=== PATIENT | male | born 1930 | race Caucasian/White ===

== ENCOUNTER 2016-08-13 15:30 | Emergency (ER) | payer OTHER, MEDICARE ==
[~2016-08-13 15:30] MED LIST: ALBUTEROL0.09 MG/A1 INH; ALTACE5 MG PO; ANTIVERT 25MG #1 PAC PO; COUMADIN 6 MG TA6 MG PO; CRESTOR10 MG PO; EPLERENONE25 MG PO; METOPROLOL TART50 MG PO; NORCO 325 MG-51 TAB PO; PREDNISONE 20MG20 MG PO; ROBITUSSIN W/CO10 ML PO; TESSALON PERLE100 MG PO; VIBRAMYCIN 100100 MG PO; ZOFRAN4 M1 SL
[2016-08-13 15:54] VITALS: BP 146/94
[2016-08-13 15:58] LABS: ABSOLUTE BASOPHIL COUNT 0.1 /CUMM (0.0-0.2); ABSOLUTE EOSINOPHIL COUNT 0 /CUMM (0.0-0.7); ABSOLUTE GRANULOCYTE CT 3.5 /CUMM (1.4-6.5); ABSOLUTE LYMPH COUNT 1.4 /CUMM (1.2-3.4); ABSOLUTE MONOCYTE COUNT 0.7 /CUMM (0.10-0.60); BASOPHIL % 1.5 % (0.0-2.0); EOSINOPHIL % 0.8 % (0-5); GRANULOCYTE % 61.5 % (42.2-75.2); MEAN CORPUSCULAR HGB 31.3 PG (27.0-31.0); MEAN CORPUSCULAR HGB CONC 33.1 G/DL (33.0-37.0); MEAN CORPUSCULAR VOLUME 94.4 FL (80.0-94.0); PLATELET COUNT 166 /CUMM (130-400); RBC DISTRIBUTION WIDTH 14.5 % (11.5-14.5); RED BLOOD CELL CT 4.45 /CUMM (4.70-6.10); WHITE BLOOD CELL COUNT 5.7 /CUMM (4.8-10.8)
[2016-08-13 16:04] LABS: PT 31.6 SEC (9.4-12.5)
--- NOTE | 2016-08-13 16:19 | RADIOLOGY REPORT ---
EXAMINATION: XR CHEST CLINICAL INFORMATION: Chest pain. Shortness of breath. COMPARISON: Chest x-ray 05/15/2015 TECHNIQUE: 2 views of the chest were obtained. FINDINGS: Pacemaker lead at base of right ventricle. Heart size enlarged. Calcifications thoracic aorta at the arch. Lungs are clear. No infiltrate or pleural effusion. There is no pulmonary vascular congestion. Compared to the prior chest x-ray there has been no change. IMPRESSION: No acute change of chest.
--- NOTE | 2016-08-13 17:20 | ED GENERAL ADULT ---
History of Present Illness General Chief Complaint: Chest Pain Stated Complaint: CP; SOB Source: patient, family, old records Exam Limitations: no limitations Allergies Coded Allergies: quinidine (UNKNOWN 09/10/15) Reconcile Medications Albuterol Sulfate (Ventolin Hfa) 90 MCG HFA.AER.AD 2 PUF INH Q4-6 PRN PRN WHEEZING/SHORTNESS OF BREATH Azithromycin 250 MG TABLET 1 DP PO AD lung 2 the first day followed by 1 for days 2-5 Eplerenone 25 MG TAB 1 TAB PO DAILY HEART (Reported) Meclizine (Antivert) 25 MG PAC 1 TAB PO TID PRN VERTIGO Methylprednisolone. (Medrol) 4 MG TAB.DS.PK 1 DP PO AD breathing Metoprolol Tartrate 50 MG TAB 1 TAB PO DAILY HEART (Reported) Metoprolol Tartrate 50 MG TAB 1 TAB PO QPM HEART (Reported) Ramipril (Altace) 5 MG CAP 1 CAP PO DAILY HEART (Reported) Rosuvastatin Calcium (Crestor) 10 MG TAB 1 TAB PO DAILY CHOLESTEROL (Reported ) Warfarin Sodium (Coumadin) 6 MG TAB 1 TAB PO 1700 BLOOD THINNER (Reported) Warfarin Sodium (Coumadin) 6 MG TAB 6.5 MG PO 1700 BLOOD THINNER (Reported) Triage Note: PER PT CO COUGH AND CONGESTION X 3 DAYS WAS GOING TO SEE PMD TODAY BUT DECIDED TO COME TO ED. CO NONSPECIFIC CP, PT REPORTS THAT HE HAS A DEFIB PT VERY VAGUE, LABS DRAWN BLUE, GOLD, LAV ANFD [place]. Triage Nurses Notes Reviewed? yes HPI: Patient is an 78-year-old male presents complaining of cough, chest congestion, wheezing, sputum production. Symptoms for approximately 72 hours. Patient reports cough with yellow sputum production. Symptoms are currently moderate. Patient has been using Vicks and Tylenol with minimal improvement. Patient has an albuterol inhaler that was so he did not use it. At approximately 2 AM this morning patient had bilateral shoulder aching pain and left upper extremity pain. No pain since at least 3 AM this morning. Patient denies fevers, chills. (BELÉN AYALA) Vital Signs & Intake/Output Vital Signs & Intake/Output Vital Signs Date Time Temp Pulse Resp B/P Pulse O2 O2 Flow FiO2 Ox Delivery Rate 08/13 1845 Room Air 08/13 1750 96 08/13 1554 71 22 146/94 95 Room Air Past History Travel History Traveled to [place] past 21 day No Medical History Any Pertinent Medical History? 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 No (BELÉN AYALA) Review of Systems Review of Systems Constitutional: Reports: weakness. Denies: chills, fever. EENTM: Reports: no symptoms. Respiratory: Reports: see HPI. Cardiovascular: Reports: see HPI. GI: Denies: abdominal pain, nausea, vomiting. Genitourinary: Reports: no symptoms. Musculoskeletal: Reports: see HPI. Skin: Reports: no symptoms. Neurological/Psychological: Reports: no symptoms. Hematologic/Endocrine: Reports: no symptoms. Immunologic/Allergic: Reports: no symptoms. (BELÉN AYALA) Physical Exam Physical Exam General Appearance: well developed/nourished, alert, awake Head: atraumatic, normal appearance Eyes: Bilateral: normal appearance, PERRL, EOMI. Ears, Nose, Throat: normal pharynx, normal ENT inspection, hearing grossly normal Neck: normal inspection, supple, full range of motion Respiratory: chest non-tender, no respiratory distress, diffuse moderate inspiratory and expiratory wheezing. Scattered rhonchi Cardiovascular: irregularly irregular, rate controlled, murmur Gastrointestinal: soft, non-tender Extremities: 1+ bilateral lower extremity edema Neurologic/Psych: no motor/sensory deficits, awake, alert, oriented x 3, normal gait, normal mood/affect Skin: intact, normal color, warm/dry Lymphatic: no anterior cervical adrienne Core Measures ACS in differential dx? Yes ASA ordered for poss ACS? No-ACS ruled out CVA/TIA Diagnosis: No Severe Sepsis Present: No Septic Shock Present: No (BELÉN AYALA) Progress Differential Diagnoses I considered the following diagnoses in my evaluation of the patient: Initial ED EKG: atrial fibrillation rate controlled, no acute changes from previous EKG Prior EKG: unchanged (BELÉN AYALA) Plan of Care: Orders Procedure Date/time Status TROPONIN LEVEL 08/13 1548 Complete PROTHROMBIN TIME 08/13 1548 Complete COMPREHENSIVE METABOLIC PANEL 08/13 1548 Complete CBC WITHOUT DIFFERENTIAL 08/13 1548 Complete EKG 08/13 1532 Active Laboratory Tests 08/13/16 1545: Anion Gap 11, Estimated GFR > 60, BUN/Creatinine Ratio 20.0, Glucose 103 H, Calcium 9.1, Total Bilirubin 1.1, AST 35, ALT 39, Alkaline Phosphatase 61, Troponin I < 0.01, Total Protein 6.5, Albumin 3.9, Globulin 2.6, Albumin/ Globulin Ratio 1.5, PT 31.6 H, INR 3.04 H, CBC w Diff NO MAN DIFF REQ, RBC 4.45 L, MCV 94.4 H, MCH 31.3 H, RDW 14.5, MPV 8.0, Gran % 61.5, Lymphocytes % 24.0, Monocytes % 12.2 H, Eosinophils % 0.8, Basophils % 1.5, Absolute Granulocytes 3.5, Absolute Lymphocytes 1.4, Absolute Monocytes 0.7 H, Absolute Eosinophils 0, Absolute Basophils 0.1, PUBS MCHC 33.1 08/13/2016 5:37:27 PM: Discussed with and seen by Dr. Hassan. Results of labs and chest x-ray discussed with patient. Patient feeling improved after IV leisure treatment. Continues with diffusely coarse lung sounds but has improved air movement. Discussed labs and imaging with patient and his family. Appears stable for discharge (BELÉN AYALA) Departure Departure Time of Disposition: 1808 Disposition: HOME OR SELF CARE Condition: Stable Clinical Impression Primary Impression: Bronchitis Referrals: BILL STEWART,MOLINA Ramirez (PCP/Family) SHANICE STEWART,SHELLY Masno Additional Instructions: Follow up with your primary doctor within 1 week for recheck and further evaluation. Your coumadin level should be rechecked early next week as the medications can affect your INR. Call in the morning for appointment. Return to the ER if breathing worsening, unable to stay hydrated or worsening of symptoms. Departure Forms: Customer Survey General Discharge Information Prescriptions: Current Visit Scripts Methylprednisolone. (Medrol) 1 DP PO AD #1 DP Azithromycin 1 DP PO AD #6 TAB 2 the first day followed by 1 for days 2-5 Albuterol Sulfate (Ventolin Hfa) 2 PUF INH Q4-6 PRN PRN WHEEZING/SHORTNESS OF BREATH #1 INHAL (BELÉN AYALA) PA/TURBINE ENGINE ASSEMBLER Co-Sign Statement Statement: ED Attending supervision documentation- [x] I saw and evaluated the patient. I have also reviewed all the pertinent lab results and diagnostic results. I agree with the findings and the plan of care as documented in the PA's/TURBINE ENGINE ASSEMBLER's documentation. [] I have reviewed the ED Record and agree with the PA's/TURBINE ENGINE ASSEMBLER's documentation. [] Additions or exceptions (if any) to the PAs/TURBINE ENGINE ASSEMBLER's note and plan are summarized below: [] (AUGUST STEWART,ELIJAH Mistry) Critical Care Note Critical Care Note Critical Care Time: non-applicable (BELÉN AYALA)
[2016-08-13] MEDS ORDERED: VENTOLIN HFA18 GM INH (18:12)
[2016-08-13] MEDS ORDERED: AZITHROMYCIN250 M1 PO (18:12)
[2016-08-13] MEDS ORDERED: MEDROL4 M2 PO (18:12)
== END 2016-08-13 18:13 ==
LOC: ERH 15:30
PROVIDERS: Emergency Medicine
DX: J40 Bronchitis, not specified as acute or chronic (principal); R07.89 Other chest pain; Z87.891 Personal history of nicotine dependence; Z79.01 Long term (current) use of anticoagulants
CPT/HCPCS: 1263; 93005; 93010

== ENCOUNTER 2017-09-17 10:31 | Emergency (ER) | payer OTHER ==
[~2017-09-17] VITALS: Ht 172.7 cm; Wt 83.9 kg
[~2017-09-17 10:31] MED LIST changes: +ALTACE5 M2 PO; -ALTACE5 MG PO; +AZITHROMYCIN250 M1 PO; +BENTYL10 M1 PO; -COUMADIN 6 MG TA6 MG PO; +COUMADIN6 M1 PO; +CRESTOR10 M1 PO; -CRESTOR10 MG PO; +EPLERENONE25 M1 PO; -EPLERENONE25 MG PO; +LOPRESSOR50 M1 PO; +MECLIZINE HCL25 MG PO; +MEDROL4 M2 PO; +METOPROLOL TART50 M1 PO; -METOPROLOL TART50 MG PO; +PROBIOTIC1 EACH PO; +VENTOLIN HFA18 GM INH; +VITAMIN D250000 UNIT PO
--- NOTE | 2017-09-17 10:34 | ED DYSPNEA/ASTHMA COMPLAINT ---
History of Present Illness General Chief Complaint: Upper Respiratory Sx/Fever Stated Complaint: COLD LIKE S/S Source: patient, family, old records Exam Limitations: no limitations Vital Signs & Intake/Output Vital Signs & Intake/Output Vital Signs Date Time Temp Pulse Resp B/P B/P Pulse O2 O2 Flow FiO2 Mean Ox Delivery Rate 09/17 1058 98 09/17 1038 96 Room Air 09/17 1035 97.9 68 18 155/85 96 Room Air Allergies Coded Allergies: quinidine (UNKNOWN 09/10/15) Reconcile Medications Amoxicillin 250 MG CAPSULE 1 CAP PO TID PNEUMONIA Dicyclomine Hydrochloride (Bentyl) 10 MG CAPSULE 1 CAP PO TID PRN ABDOMINAL CRAMPING Eplerenone 25 MG TABLET 1 TAB PO DAILY HEART (Reported) Ergocalciferol (Vitamin D2) (Vitamin D2) 50,000 UNIT CAPSULE 1 CAP PO QW VITAMIN SUPPORT (Reported) Lactobacillus Acidophilus (Probiotic) 10 BILLION CELL CAPSULE 1 CAP PO QW GI (Reported) Meclizine (Antivert) 25 MG PAC 1 TAB PO TID PRN VERTIGO Meclizine HCl 25 MG TABLET 1 TAB PO TIDPRN PRN VERTIGO (Reported) Metoprolol Tartrate 50 MG TABLET 0.5 TAB PO QPM HTN/AFIB (Reported) Metoprolol Tartrate (Lopressor) 50 MG TABLET 1 TAB PO DAILY HEART (Reported) Ramipril (Altace) 5 MG CAPSULE 1 CAP PO QPM HEART (Reported) Rosuvastatin Calcium (Crestor) 10 MG TABLET 1 TAB PO DAILY CHOLESTEROL ( Reported) Warfarin Sodium (Coumadin) 6 MG TABLET 1 TAB PO MoTuWeThFrSa BLOOD THINNER ( Reported) Warfarin Sodium (Coumadin) 6 MG TABLET 0.5 TAB PO Szymanski BLOOD THINNER (Reported) Triage Nurses Notes Reviewed? yes HPI: Patient presents with a runny nose, productive cough and shortness of breath worsening over the past 2 days. Patient denies any chest pain or chest tightness. There is no dyspnea on exertion or orthopnea. There is no nausea or vomiting. There are no fevers or chills. Patient has been using his inhaler without relief. Past History Medical History Any Pertinent Medical History? 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 No Review of Systems Review of Systems Constitutional: Reports: no symptoms. EENTM: Reports: no symptoms. Respiratory: Reports: see HPI, cough, short of breath. Cardiovascular: Reports: no symptoms. GI: Reports: no symptoms. Genitourinary: Reports: no symptoms. Musculoskeletal: Reports: no symptoms. Skin: Reports: no symptoms. Neurological/Psychological: Reports: no symptoms. Hematologic/Endocrine: Reports: no symptoms. Immunologic/Allergic: Reports: no symptoms. All Other Systems: Reviewed and Negative Physical Exam Physical Exam General Appearance: well developed/nourished, alert, awake, anxious, mild distress Head: atraumatic, normal appearance Eyes: Bilateral: PERRL, EOMI. Ears, Nose, Throat: normal pharynx, hearing grossly normal Neck: normal inspection, supple, full range of motion Respiratory: normal breath sounds, chest non-tender, rhonchi Cardiovascular: regular rate/rhythm, normal peripheral pulses Gastrointestinal: normal bowel sounds, soft, non-tender, no organomegaly Extremities: normal inspection, normal capillary refill, normal range of motion, no edema Neurologic/Psych: no motor/sensory deficits, awake, alert, oriented x 3, normal gait, normal mood/affect Skin: intact, normal color, warm/dry Lymphatic: no anterior cervical adrienne Core Measures ACS in differential dx? No CVA/TIA Diagnosis No Sepsis Present: No Sepsis Focused Exam Completed? No Progress Differential Diagnosis: asthma, bronchitis, CHF, COPD, pneumonia, pneumothorax Plan of Care: Orders Procedure Date/time Status BLOOD CULTURE 09/17 1107 Active PARTIAL THROMBOPLASTIN TIME 09/17 1107 Complete PROTHROMBIN TIME 09/17 1107 Complete Add-on Test (ER Only) 09/17 1058 Active TROPONIN LEVEL 09/17 1042 Complete COMPREHENSIVE METABOLIC PANEL 09/17 1042 Complete CBC WITHOUT DIFFERENTIAL 09/17 1042 Complete EKG 09/17 1042 Active Laboratory Tests 09/17/17 1118: PT 25.7 H, INR 2.34 H, APTT 35 09/17/17 1055: Anion Gap 9, Estimated GFR > 60, BUN/Creatinine Ratio 27.1 H, Glucose 104 H, Calcium 9.2, Total Bilirubin 1.3, AST 28, ALT 33, Alkaline Phosphatase 51, Troponin I 0.01, Total Protein 6.3, Albumin 3.8, Globulin 2.5, Albumin/Globulin Ratio 1.5, CBC w Diff NO MAN DIFF REQ, RBC 4.28 L, MCV 95.3 H, MCH 32.5 H, MCHC 34.1, RDW 15.2 H, MPV 7.5, Gran % 73.3, Lymphocytes % 17.4 L, Monocytes % 7.8, Eosinophils % 0.9, Basophils % 0.6, Absolute Granulocytes 5.4, Absolute Lymphocytes 1.3, Absolute Monocytes 0.6, Absolute Eosinophils 0.1, Absolute Basophils 0 Microbiology 09/17 1130 BLOOD: Blood Culture - RECD 09/17 1118 BLOOD: Blood Culture - RECD Diagnostic Imaging: Viewed by Me: Radiology Read. Discussed w/RAD: Radiology Read. CXR Impression: PATIENT: BERNARDO BURGESS PRESENT AGE: 87 PATIENT ACCOUNT NO: [id number] : [birth year] LOCATION: [facility] ORDERING PHYSICIAN: Keith Arias MD SERVICE DATE: 09/17/17-1041 EXAM TYPE: RAD - XRY- PORTABLE CHEST XRAY EXAMINATION: XR PORTABLE CHEST CLINICAL INFORMATION: Shortness of breath cough COMPARISON: Chest x-ray dated 08/13/2016 TECHNIQUE: Portable frontal view of the chest was obtained. FINDINGS: Single-lead AICD device in place. Stable cardiomegaly. Minor hazy opacity left lower lung/ retrocardiac region may represent evolving infiltrate or atelectasis. Mild central vascular congestion. Bony thorax is intact. IMPRESSION: Hazy evolving infiltrate or atelectasis suspected in the left lower lung. DICTATED BY: Jesenia Garcia MD DATE/TIME DICTATED:09/17/171336 PERPETUAL INVENTORY CLERK:RACHEL DATE/ TIME TRANSCRIBED:09/17/171336 CONFIDENTIAL, DO NOT COPY WITHOUT APPROPRIATE AUTHORIZATION. <Electronically signed in Other Vendor System> SIGNED BY: Jesenia Garcia MD 09/17/17 1342 Initial ED EKG: AFIB, nonspecific ST T wave chg Prior EKG: unchanged Departure Departure Disposition: HOME OR SELF CARE Condition: Stable Clinical Impression Primary Impression: Pneumonia Referrals: Allyn STEWART,Urbano Ramirez Additional Instructions: RETURN IF SYMPTOMS WORSEN ORFOR ANY CONCERNS Departure Forms: Customer Survey General Discharge Information Prescriptions: Current Visit Scripts Amoxicillin 1 CAP PO TID #30 CAP Critical Care Note Critical Care Note Critical Care Time: non-applicable
[2017-09-17 11:02] LABS: ABSOLUTE BASOPHIL COUNT 0 /CUMM (0.0-0.2); ABSOLUTE EOSINOPHIL COUNT 0.1 /CUMM (0.0-0.7); ABSOLUTE GRANULOCYTE CT 5.4 /CUMM (1.4-6.5); ABSOLUTE LYMPH COUNT 1.3 /CUMM (1.2-3.4); ABSOLUTE MONOCYTE COUNT 0.6 /CUMM (0.10-0.60); BASOPHIL % 0.6 % (0.0-2.0); EOSINOPHIL % 0.9 % (0-5); GRANULOCYTE % 73.3 % (42.2-75.2); HEMATOCRIT 40.8 % (42-52); MEAN CORPUSCULAR HGB 32.5 PG (27.0-31.0); MEAN CORPUSCULAR HGB CONC 34.1 G/DL (33.0-37.0); MEAN CORPUSCULAR VOLUME 95.3 FL (80.0-94.0); MEAN PLATELET VOLUME 7.5 FL (7.4-10.4); PLATELET COUNT 193 /CUMM (130-400); RBC DISTRIBUTION WIDTH 15.2 % (11.5-14.5); RED BLOOD CELL CT 4.28 /CUMM (4.70-6.10); WHITE BLOOD CELL COUNT 7.4 /CUMM (4.8-10.8)
[2017-09-17 11:45] LABS: PT 25.7 SEC (9.4-12.5); PTT 35 SEC (25-37)
[2017-09-17 13:25] VITALS: BP 145/70
--- NOTE | 2017-09-17 13:42 | RADIOLOGY REPORT ---
EXAMINATION: XR PORTABLE CHEST CLINICAL INFORMATION: Shortness of breath cough COMPARISON: Chest x-ray dated 08/13/2016 TECHNIQUE: Portable frontal view of the chest was obtained. FINDINGS: Single-lead AICD device in place. Stable cardiomegaly. Minor hazy opacity left lower lung/retrocardiac region may represent evolving infiltrate or atelectasis. Mild central vascular congestion. Bony thorax is intact. IMPRESSION: Hazy evolving infiltrate or atelectasis suspected in the left lower lung.
[2017-09-17] MEDS ORDERED: AMOXICILLIN250 M3 PO (14:09)
== END 2017-09-17 14:27 ==
LOC: ERH 10:31
PROVIDERS: Emergency Medicine
DX: J18.9 Pneumonia, unspecified organism (principal); F17.210 Nicotine dependence, cigarettes, uncomplicated; Z79.01 Long term (current) use of anticoagulants
CPT/HCPCS: 1263; 71045; 87040; 93005; 93010; 96374; 96375; J0696; J2930